=== PATIENT | female | born 2000 | race Asian ===

== ENCOUNTER 2021-01-12 21:53 | Emergency (ER) | payer OTHER ==
[~2021-01-12] VITALS: Ht 170.2 cm; Wt 71.8 kg
[2021-01-12 22:08] VITALS: BP 118/65; PULSE 79; TEMP 98.2
[2021-01-12] MEDS ORDERED: LEXAPRO 10MG10 MG PO (22:25)
[2021-01-12] MEDS ORDERED: NORCO 325 MG-51 TAB PO (23:09)
== END 2021-01-12 23:32 | disposition home or self-care (01) ==
LOC: COL.ER 21:53
DX: S42.101A Fracture of unspecified part of scapula, right shoulder, initial encounter for closed fracture (principal); F32.9 Major depressive disorder, single episode, unspecified; Z79.899 Other long term (current) drug therapy; V17.4XXA Pedal cycle driver injured in collision with fixed or stationary object in traffic accident, initial encounter